=== PATIENT | male | born 1935 | race Asian ===

== ENCOUNTER 2020-09-27 14:13 | Inpatient (IN) | payer MEDICARE, OTHER ==
[~2020-09-27] VITALS: Ht 165.1 cm; Wt 67.6 kg
--- NOTE | 2020-09-27 14:13 | NUR ---
PT BIB [employer] AND [employer] TEAM FOR PSYCH ADMISSION 5157 DANGER TO SELF. PT IS AAOX3, NOT IN RESPIRATORY DISTRESS, V/S STABLE, KEPT RESTED AND COMFORTABLE. WILL CONTINUE TO MONITOR.
--- NOTE | 2020-09-27 14:20 | NUR ---
URINE SPECIMEN COLLECTED AND SENT TO LAB
--- NOTE | 2020-09-27 14:32 | NUR ---
SEEN AND EXAMINED BY .
[2020-09-27 14:43] LABS: BILIRUBIN,URINE Negative (NEGATIVE); COLOR,URINE YELLOW (YELLOW); LEUKOCYTE ESTERASE ,URINE Negative (NEGATIVE); NITRITE, URINE Negative (NEGATIVE); PROTEIN,URINE Trace mg/dl (NEGATIVE); UGLUCOSE Negative (NEGATIVE); UROBILINOGEN,URINE 0.2 EU/dL (0.2)
[2020-09-27 14:50] LABS: BASOPHILS # (AUTO) 0.1 K/uL (0.0-0.2); MONOCYTES # (AUTO) 0.7 K/uL (0.1-1.30); NEUTROPHILS # (AUTO) 6.5 K/uL (1.8-8.9)
[2020-09-27 14:53] LABS: BASOPHILS % (AUTO) 1.1 % (0.0-2.0); EOSINOPHILS % (AUTO) 1.4 % (0.0-6.0); HEMATOCRIT 38 % (39-51); HEMOGLOBIN 13.3 g/dL (13.5-17.5); LYMPHOCYTES # (AUTO) 1.9 K/uL (0.8-4.8); LYMPHOCYTES % (AUTO) 20.3 % (20.0-44.0); MEAN CORPUSCULAR HGB CONC 35 g/dl (31.0-36.0); MEAN CORPUSCULAR VOLUME 97 fL (80-96); MONOCYTES % (AUTO) 7.4 % (2.0-12.0); NEUTROPHILS % (AUTO) 69.8 % (43.0-81.0); PLATELET COUNT (AUTO) 159 K/uL (150-450); RED BLOOD CELL COUNT(AUTO) 3.96 MIL/uL (4.5-6.0); WHITE BLOOD COUNT (AUTO) 9.3 K/uL (4.3-11.0)
[2020-09-27] MEDS ORDERED: MEMA1CAP3 PO (14:53)
[2020-09-27] MEDS ORDERED: ASPI-1420 PO (14:53)
[2020-09-27] MEDS ORDERED: DUTA0.5C37 PO (14:53)
[2020-09-27] MEDS ORDERED: ISOS30TA86 PO (14:53)
[2020-09-27] MEDS ORDERED: TAMS-12 PO (14:53)
[2020-09-27] MEDS ORDERED: PANT40TA49 PO (14:53)
[2020-09-27] MEDS ORDERED: MEGE400O5 PO (14:53)
[2020-09-27] MEDS ORDERED: TICA90TA PO (14:53)
[2020-09-27] MEDS ORDERED: SOLI5TAB2 PO (14:53)
[2020-09-27] MEDS ORDERED: LINA145C PO (14:53)
[2020-09-27] MEDS ORDERED: RANO500T6 PO (14:53)
[2020-09-27] MEDS ORDERED: ASCO-352 PO (14:53)
[2020-09-27] MEDS ORDERED: ATOR40TA PO (14:53)
[2020-09-27] MEDS ORDERED: CYCL30DR EACHEYE (14:53)
[2020-09-27] MEDS ORDERED: LOSA100T31 PO (14:53)
[2020-09-27] MEDS ORDERED: NITR0.4T48 SL (14:53)
[2020-09-27] MEDS ORDERED: DICY20TA11 PO (14:53)
[2020-09-27] MEDS ORDERED: MYRBETRIQ PO (14:53)
[2020-09-27] MEDS ORDERED: METO-357 PO (14:53)
[2020-09-27 14:57] LABS: BACTERIA,URINE Rare /HPF (None Seen); MUCUS,URINE Few /LPF (None Seen); RBC,URINE 0-2 /HPF (0-2); SQUAMOUS EPITHELIAL CELL,UR 0-2 /HPF (None Seen); WBC,URINE 0-2 /HPF (0-3)
[2020-09-27 15:00] LABS: CALCIUM, SERUM 9.1 mg/dL (8.5-10.1); CARBON DIOXIDE 26 mmol/L (21-32); CHLORIDE 106 mmol/L (98-107); CREATININE 1.2 mg/dL (0.6-1.3); GLUCOSE 118 mg/dL (74-106); POTASSIUM 3.6 mmol/L (3.5-5.1); SODIUM SERUM 141 mmol/L (136-145); UREA NITROGEN, BLOOD 26 mg/dL (7-18)
[2020-09-27 15:05] LABS: ALANINE AMINOTRANSFERASE 35 U/L (12-78); ALBUMIN 3.8 g/dL (3.4-5.0); ALKALINE PHOSPHATASE 84 U/L (46-116); ASPARTATE AMINOTRANSFERASE 29 U/L (15-37); BILIRUBIN,DIRECT 0.2 mg/dL (0.0-0.2); BILIRUBIN,TOTAL 0.9 mg/dL (0.2-1.0); TOTAL PROTEIN, SERUM 6.9 g/dL (6.4-8.2)
[2020-09-27 15:08] LABS: ACETAMINOPHEN < 0 ug/ml (10-30); ALCOHOL, BLOOD < 3 mg/dL (0-0)
--- NOTE | 2020-09-27 16:11 | NUR ---
BED 212A
--- NOTE | 2020-09-27 16:43 | NUR ---
REPORT GIVEN TO ANGELINA HANKINS FOR CHRIST[facility]O.
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
[2020-09-27] MEDS ORDERED: LORAZEPAM 0.5 MG TABLET PO PRN (17:30)
[2020-09-27] MEDS ORDERED: TEMAZEPAM 7.5 MG CAPSULE PO PRN (17:30)
[2020-09-27] MEDS ORDERED: ACETAMINOPHEN 325 MG TABLET PO PRN (17:30)
[2020-09-27] MEDS ORDERED: BLOOD SUGAR DIAGNOSTIC 1 EACH STRIP IN ONE (17:30)
[2020-09-27] MEDS ORDERED: NITROGLYCERIN 0.4 MG/TAB BOTTLE SL PRN (17:30)
[2020-09-27] MEDS ORDERED: MAGNESIUM HYDROXIDE 30 ML UDC PO PRN (17:30)
[2020-09-27] MEDS ORDERED: MAG HYDROX/AL HYDROX/SIMETH 30 ML UDC PO PRN (17:30)
[2020-09-27] MEDS ORDERED: Medication Not On Formulary EA (Linaclotide (Linzess) 145 MCG) PO SCH (18:00)
[2020-09-27] MEDS ORDERED: METOPROLOL SUCCINATE 25 MG TAB.SR.24H PO STA (18:15)
--- NOTE | 2020-09-27 18:24 | NUR ---
RN NOTE- HR STILL IN THE 110-120'S. CHLOE PEREZ ORDERED METOPROLOL 25 MG PO STAT X ONE DOSE. COMPLIED
[2020-09-27 20:00] VITALS: BP 132/79
--- NOTE | 2020-09-28 03:39 | NUR ---
Initial Discharge Plan: Pt currently lives at long term apartment located at [address]; ([phone]). Per pt, he would like to return to his home after discharge. SW will work with the pt and the MD regarding appropriate discharge planning. SW will form a safe and proper discharge.
--- NOTE | 2020-09-28 06:38 | NUR ---
GPS RN CLOSING NOTES: PATIENT IS CURRENTLY SLEEPING. PATIENT SLEPT 5HRS THIS SHIFT. NO S/S OF DISTRESS. RESPIRATION EVEN AND UNLABORED WITH EQUAL RISE AND FALL OF THE CHEST ON ROOM AIR. ALL PATIENT CARE NEEDS HAVE BEEN MET ANTICIPATED. BED IN LOWEST POSITION AND LOCKED, WITH SIDE RAILS UP X2 FOR SAFETY. WILL CONTINUE TO MONITOR FOR SAFETY, MOOD AND BEHAVIOR AND ENDORSE TO AM SHIFT.
[2020-09-28 06:51] LABS: ALBUMIN 3.6 g/dL (3.4-5.0); BILIRUBIN,TOTAL 1.1 mg/dL (0.2-1.0); CALCIUM, SERUM 9.2 mg/dL (8.5-10.1); CREATININE 1.1 mg/dL (0.6-1.3); POTASSIUM 3.9 mmol/L (3.5-5.1); TOTAL PROTEIN, SERUM 6.6 g/dL (6.4-8.2)
[2020-09-28 06:52] LABS: CHOLESTEROL 119 mg/dL (<200); HDL CHOLESTEROL 37 mg/dL (40-60); LDL 51 mg/dL (0-99); TRIGLYCERIDES 177 mg/dL (30-150)
[2020-09-28 06:54] LABS: IRON, SERUM 121 ug/dl (50-175); TOTAL IRON BINDING CAPACITY 286 ug/dl (250-450)
[2020-09-28 07:31] LABS: CREATININE 1.1 mg/dL (0.6-1.3)
[2020-09-28] MEDS: PANTOPRAZOLE 40 MG TABLET.DR PO SCH (07:59)
[2020-09-28 08:00] VITALS: BP 132/86
[2020-09-28] MEDS: ATORVASTATIN 40 MG TABLET PO SCH (08:13)
[2020-09-28] MEDS: ASPIRIN EC 81 MG TABLET.DR PO SCH (08:13)
[2020-09-28] MEDS: LOSARTAN POTASSIUM 50 MG TABLET PO SCH (08:13)
[2020-09-28] MEDS: DUTASTERIDE (0.5 MG) 0.5 MG CAPSULE PO SCH (08:13)
[2020-09-28] MEDS: RANOLAZINE 500 MG TAB.ER.12H PO SCH (08:13)
[2020-09-28] MEDS: TAMSULOSIN 0.4 MG CAP.SR.24H PO SCH (08:13)
[2020-09-28] MEDS: ISOSORBIDE MONONITRATE (30MG) 30 MG TAB.SR.24H PO SCH (08:14)
[2020-09-28] MEDS: ASCORBIC ACID 500 MG TABLET PO SCH ×2 (08:14→16:17)
[2020-09-28] MEDS: METOPROLOL SUCCINATE 50 MG TAB.SR.24H PO SCH (08:16)
[2020-09-28] MEDS: TICAGRELOR 90 MG TABLET PO SCH ×2 (08:17→16:20)
[2020-09-28] MEDS ORDERED: Medication Not On Formulary EA (Memantine HCl/Donepezil HCl (Namzaric 28 mg-10 mg Capsul PO SCH (09:00)
[2020-09-28] MEDS ORDERED: Medication Not On Formulary EA (Cyclosporine (Restasis) 1 DROP) EACHEYE SCH (09:00)
--- NOTE | 2020-09-28 09:00 | NUR ---
RN NOTE- PT CONFUSED, ORIENTED TO PERSON PLACE, WITHDRAWN ISOLATIVE THOUGH STARTING TO AMBULATE AROUND UNIT MORE , DENIES SI HI VH
--- NOTE | 2020-09-28 11:41 | NUR ---
Point of contact: FLORESITA called point of contact (no name given) at . Point of contact did not answer the call. SW was unable to leave voicemail because voicemail was full.
--- NOTE | 2020-09-28 13:55 | NUR ---
RN NOTE- PT W REPORTED STUMBLING STEPS, APPEARING TO LOSE BALANCE IN SUN THOUGH DIDN'T FALL. STAFF ESCORTED TO ROOM. VS- BP- 104/60, HR- 78, RR- 18, SATURATION -98% RA. PT ALERT ORIENTED STATES " I DON'T FEEL DIZZY OR ANYTHING' WILL MONITOR PT AND ORDER PT EVAL PRECAUTION.
[2020-09-28 16:03] VITALS: BP 97/60
[2020-09-28] MEDS: QUETIAPINE FUMARATE 25 MG TABLET PO SCH ×2 (16:17→22:24)
[2020-09-28] MEDS: MEMANTINE HCL 5 MG TABLET PO SCH (16:17)
[2020-09-28 20:00] VITALS: BP 125/76
[2020-09-28 20:30] VITALS: BP 125/76
[2020-09-28] MEDS: DONEPEZIL 5 MG TABLET PO SCH (21:19)
--- NOTE | 2020-09-29 06:48 | NUR ---
RN NOTE PATIENT SLEPT WELL AT NIGHT, USED RESTROOM NEEDED. NEEDS 1 PERSON STAND BY ASSISTANCE DUE TO UNSTEADY GAIT AT TIMES. NO OTHER ACUTE CHANGES NOTED THOROUGH OUT THE SHIFT. WILL ENDORSE TO AM RN FOR CONTINUITY OF CARE.
[2020-09-29 08:00] VITALS: BP 113/73
[2020-09-29] MEDS: MEMANTINE HCL 5 MG TABLET PO SCH ×2 (08:46→17:12)
[2020-09-29] MEDS: LOSARTAN POTASSIUM 50 MG TABLET PO SCH (08:47)
[2020-09-29] MEDS: ASPIRIN EC 81 MG TABLET.DR PO SCH (08:47)
[2020-09-29] MEDS: DUTASTERIDE (0.5 MG) 0.5 MG CAPSULE PO SCH (08:47)
[2020-09-29] MEDS: METOPROLOL SUCCINATE 50 MG TAB.SR.24H PO SCH (08:47)
[2020-09-29] MEDS: RANOLAZINE 500 MG TAB.ER.12H PO SCH (08:47)
[2020-09-29] MEDS: QUETIAPINE FUMARATE 25 MG TABLET PO SCH ×3 (08:48→21:57)
[2020-09-29] MEDS: TAMSULOSIN 0.4 MG CAP.SR.24H PO SCH (08:48)
[2020-09-29] MEDS: ASCORBIC ACID 500 MG TABLET PO SCH ×2 (08:48→17:11)
[2020-09-29] MEDS: ATORVASTATIN 40 MG TABLET PO SCH (08:48)
[2020-09-29] MEDS: PANTOPRAZOLE 40 MG TABLET.DR PO SCH (08:48)
[2020-09-29] MEDS: ISOSORBIDE MONONITRATE (30MG) 30 MG TAB.SR.24H PO SCH (08:48)
[2020-09-29] MEDS: TICAGRELOR 90 MG TABLET PO SCH ×2 (09:06→17:12)
[2020-09-29 16:00] VITALS: BP 147/82
--- NOTE | 2020-09-29 19:55 | NUR ---
GPS RN NOTES RECEIVED SITTING ON CHAIR IN THE DINING ROOM,WATCHING TV PROGRAM,A/O 1-2,CALM ABLE TO STATE HIS NAME.DENIES SI,ABLE TO ANSWER SIMPLE QUESTIONS AND ABLE FOLLOW COMMANDS.MED COMPLIANT PER REPORT.WILL CONTINUE TO MONITOR BEHAVIOR AND MANAGE ACCORDINGLY
[2020-09-29 20:00] VITALS: BP 118/73
[2020-09-29 20:08] VITALS: BP 118/73
[2020-09-29] MEDS: DONEPEZIL 5 MG TABLET PO SCH (21:57)
--- NOTE | 2020-09-30 03:09 | NUR ---
GPS RN NOTES C/O HEADACHE,TYLENOL 650MG PO GIVEN PER PATIENT REQUEST,WITH ORDER.
[2020-09-30 08:00] VITALS: BP 115/72
[2020-09-30] MEDS: PANTOPRAZOLE 40 MG TABLET.DR PO SCH (08:27)
[2020-09-30] MEDS: ASCORBIC ACID 500 MG TABLET PO SCH ×2 (08:27→16:13)
[2020-09-30] MEDS: METOPROLOL SUCCINATE 50 MG TAB.SR.24H PO SCH (08:27)
[2020-09-30] MEDS: ASPIRIN EC 81 MG TABLET.DR PO SCH (08:27)
[2020-09-30] MEDS: RANOLAZINE 500 MG TAB.ER.12H PO SCH (08:28)
[2020-09-30] MEDS: MEMANTINE HCL 5 MG TABLET PO SCH ×2 (08:28→16:14)
[2020-09-30] MEDS: TAMSULOSIN 0.4 MG CAP.SR.24H PO SCH (08:28)
[2020-09-30] MEDS: ATORVASTATIN 40 MG TABLET PO SCH (08:28)
[2020-09-30] MEDS: QUETIAPINE FUMARATE 25 MG TABLET PO SCH ×3 (08:28→22:09)
[2020-09-30] MEDS: ISOSORBIDE MONONITRATE (30MG) 30 MG TAB.SR.24H PO SCH (08:29)
[2020-09-30] MEDS: DUTASTERIDE (0.5 MG) 0.5 MG CAPSULE PO SCH (08:29)
[2020-09-30] MEDS: LOSARTAN POTASSIUM 50 MG TABLET PO SCH (08:29)
[2020-09-30] MEDS: TICAGRELOR 90 MG TABLET PO SCH ×2 (08:31→16:15)
--- NOTE | 2020-09-30 10:30 | NUR ---
Contact with Department of Mental Health Healthcare Project Manager: FLORESITA met with Nick Hoang, Department of Mental Health Healthcare Project Manager ([phone]). Nick reports that pt is mandated to be assessed by nephrology social worker due to [employer] report of pt potentially owning a gun. FLORESITA will keep Nick updated on pt discharge plan.
--- NOTE | 2020-09-30 11:58 | NUR ---
[facility] came and interviewed pt. and left a business card and attached in the chart.
[2020-09-30 16:00] VITALS: BP 110/70
[2020-09-30 20:50] VITALS: BP 108/69
[2020-09-30] MEDS: DONEPEZIL 5 MG TABLET PO SCH (22:08)
[2020-10-01] MEDS: PANTOPRAZOLE 40 MG TABLET.DR PO SCH (07:48)
[2020-10-01 08:00] VITALS: BP 137/82
[2020-10-01] MEDS: DUTASTERIDE (0.5 MG) 0.5 MG CAPSULE PO SCH (08:34)
[2020-10-01] MEDS: ATORVASTATIN 40 MG TABLET PO SCH (08:34)
[2020-10-01] MEDS: MEMANTINE HCL 5 MG TABLET PO SCH ×2 (08:34→16:23)
[2020-10-01] MEDS: RANOLAZINE 500 MG TAB.ER.12H PO SCH (08:34)
[2020-10-01] MEDS: ASPIRIN EC 81 MG TABLET.DR PO SCH (08:34)
[2020-10-01] MEDS: ASCORBIC ACID 500 MG TABLET PO SCH ×2 (08:34→16:23)
[2020-10-01] MEDS: ISOSORBIDE MONONITRATE (30MG) 30 MG TAB.SR.24H PO SCH (08:35)
[2020-10-01] MEDS: LOSARTAN POTASSIUM 50 MG TABLET PO SCH (08:35)
[2020-10-01] MEDS: METOPROLOL SUCCINATE 50 MG TAB.SR.24H PO SCH (08:35)
[2020-10-01] MEDS: QUETIAPINE FUMARATE 25 MG TABLET PO SCH ×3 (08:39→21:21)
[2020-10-01] MEDS: TAMSULOSIN 0.4 MG CAP.SR.24H PO SCH (08:39)
[2020-10-01] MEDS: TICAGRELOR 90 MG TABLET PO SCH ×2 (08:40→16:23)
--- NOTE | 2020-10-01 14:13 | NUR ---
Point of contact: FLORESITA called point of contact (no name given) at [phone]. Point of contact did not answer the call. FLORESITA was unable to leave voicemail because the voicemail box has not been setup.
--- NOTE | 2020-10-01 14:17 | NUR ---
Contact with Department of Mental Health SW: FLORESITA called Department of Mental Health FLORESITA Hoang ([phone]) and inquired if he had contact information for pts point of contact. FLORESITA reports that the point of contact information in pts chart is not answering. Department of Mental Health FLORESITA reports that he will call SW back with pts point of contact information.
[2020-10-01 16:00] VITALS: BP 129/69
--- NOTE | 2020-10-01 16:08 | NUR ---
Contact with Department of Mental Health SW: SW received a call from Department of Mental Health FLORESITA Hoang ([phone]). Department of Mental Health FLORESITA reports of the following point of contacts for pt Blanca Goldstein ([phone]), director long term care at pts adult day care Mally Fernandes ([phone]) and pts primary care physician Dr. Ramesh Atwood ([phone]). SW will follow up with the point of contacts given by Department of Mental Health FLORESITA.
--- NOTE | 2020-10-01 20:00 | NUR ---
RN NOTES RECEIVED PATIENT IN BED, ALERT/ORIENTED X2, ROOM AIR, DENIES PAIN AT THIS TIME, NOT IN DISTRESS, CALM, ANSWERS QUESTIONS APPROPRIATELY, AMBULATES , CONTINENT OF BOWEL AND BLADDER.
[2020-10-01 20:29] VITALS: BP 130/78
[2020-10-01] MEDS: DONEPEZIL 5 MG TABLET PO SCH (21:21)
[2020-10-02 08:00] VITALS: BP 117/68
[2020-10-02] MEDS: ASPIRIN EC 81 MG TABLET.DR PO SCH (08:18)
[2020-10-02] MEDS: TAMSULOSIN 0.4 MG CAP.SR.24H PO SCH (08:18)
[2020-10-02] MEDS: PANTOPRAZOLE 40 MG TABLET.DR PO SCH (08:18)
[2020-10-02] MEDS: DUTASTERIDE (0.5 MG) 0.5 MG CAPSULE PO SCH (08:18)
[2020-10-02] MEDS: METOPROLOL SUCCINATE 50 MG TAB.SR.24H PO SCH (08:19)
[2020-10-02] MEDS: RANOLAZINE 500 MG TAB.ER.12H PO SCH (08:19)
[2020-10-02] MEDS: ATORVASTATIN 40 MG TABLET PO SCH (08:19)
[2020-10-02] MEDS: ISOSORBIDE MONONITRATE (30MG) 30 MG TAB.SR.24H PO SCH (08:19)
[2020-10-02] MEDS: LOSARTAN POTASSIUM 50 MG TABLET PO SCH (08:20)
[2020-10-02] MEDS: ASCORBIC ACID 500 MG TABLET PO SCH ×2 (08:20→17:35)
[2020-10-02] MEDS: MEMANTINE HCL 5 MG TABLET PO SCH ×2 (08:20→17:35)
[2020-10-02] MEDS: QUETIAPINE FUMARATE 25 MG TABLET PO SCH ×3 (08:21→21:17)
[2020-10-02] MEDS: TICAGRELOR 90 MG TABLET PO SCH ×2 (08:22→17:38)
[2020-10-02 16:00] VITALS: BP 114/75
[2020-10-02 20:22] VITALS: BP 102/64
[2020-10-02] MEDS: DONEPEZIL 5 MG TABLET PO SCH (21:17)
[2020-10-03 08:00] VITALS: BP 141/78
[2020-10-03] MEDS: DUTASTERIDE (0.5 MG) 0.5 MG CAPSULE PO SCH (08:29)
[2020-10-03] MEDS: MEMANTINE HCL 5 MG TABLET PO SCH ×2 (08:29→16:34)
[2020-10-03] MEDS: TAMSULOSIN 0.4 MG CAP.SR.24H PO SCH (08:29)
[2020-10-03] MEDS: RANOLAZINE 500 MG TAB.ER.12H PO SCH (08:29)
[2020-10-03] MEDS: ATORVASTATIN 40 MG TABLET PO SCH (08:29)
[2020-10-03] MEDS: PANTOPRAZOLE 40 MG TABLET.DR PO SCH (08:29)
[2020-10-03] MEDS: ASCORBIC ACID 500 MG TABLET PO SCH ×2 (08:29→16:34)
[2020-10-03] MEDS: ASPIRIN EC 81 MG TABLET.DR PO SCH (08:29)
[2020-10-03] MEDS: QUETIAPINE FUMARATE 25 MG TABLET PO SCH ×3 (08:29→22:18)
[2020-10-03] MEDS: ISOSORBIDE MONONITRATE (30MG) 30 MG TAB.SR.24H PO SCH (08:30)
[2020-10-03] MEDS: METOPROLOL SUCCINATE 50 MG TAB.SR.24H PO SCH (08:30)
[2020-10-03] MEDS: LOSARTAN POTASSIUM 50 MG TABLET PO SCH (08:31)
[2020-10-03] MEDS: TICAGRELOR 90 MG TABLET PO SCH ×2 (08:31→16:35)
[2020-10-03 16:00] VITALS: BP 127/78
[2020-10-03 20:50] VITALS: BP 94/59
[2020-10-03] MEDS: DONEPEZIL 5 MG TABLET PO SCH (22:16)
[2020-10-04] MEDS: PANTOPRAZOLE 40 MG TABLET.DR PO SCH (07:49)
[2020-10-04 08:00] VITALS: BP 107/57
[2020-10-04] MEDS: RANOLAZINE 500 MG TAB.ER.12H PO SCH (08:51)
[2020-10-04] MEDS: ASPIRIN EC 81 MG TABLET.DR PO SCH (08:52)
[2020-10-04] MEDS: ATORVASTATIN 40 MG TABLET PO SCH (08:52)
[2020-10-04] MEDS: TAMSULOSIN 0.4 MG CAP.SR.24H PO SCH (08:52)
[2020-10-04] MEDS: ASCORBIC ACID 500 MG TABLET PO SCH ×2 (08:53→16:51)
[2020-10-04] MEDS: LOSARTAN POTASSIUM 50 MG TABLET PO SCH (08:53)
[2020-10-04] MEDS: DUTASTERIDE (0.5 MG) 0.5 MG CAPSULE PO SCH (08:53)
[2020-10-04] MEDS: MEMANTINE HCL 5 MG TABLET PO SCH ×2 (08:53→16:51)
[2020-10-04] MEDS: ISOSORBIDE MONONITRATE (30MG) 30 MG TAB.SR.24H PO SCH (08:54)
[2020-10-04] MEDS: QUETIAPINE FUMARATE 25 MG TABLET PO SCH ×3 (08:54→21:31)
[2020-10-04] MEDS: METOPROLOL SUCCINATE 50 MG TAB.SR.24H PO SCH (08:55)
[2020-10-04] MEDS: TICAGRELOR 90 MG TABLET PO SCH ×2 (09:03→16:50)
[2020-10-04 16:00] VITALS: BP 127/76
[2020-10-04 20:00] VITALS: BP 124/75
[2020-10-04] MEDS: MIRTAZAPINE 15 MG TABLET PO SCH (21:31)
[2020-10-04] MEDS: DONEPEZIL 5 MG TABLET PO SCH (21:31)
[2020-10-05 08:00] VITALS: BP 139/83
[2020-10-05] MEDS: LOSARTAN POTASSIUM 50 MG TABLET PO SCH (09:00)
[2020-10-05] MEDS: TICAGRELOR 90 MG TABLET PO SCH ×2 (09:10→17:00)
[2020-10-05] MEDS: ASCORBIC ACID 500 MG TABLET PO SCH ×2 (09:11→16:59)
[2020-10-05] MEDS: ASPIRIN EC 81 MG TABLET.DR PO SCH (09:11)
[2020-10-05] MEDS: PANTOPRAZOLE 40 MG TABLET.DR PO SCH (09:11)
[2020-10-05] MEDS: ATORVASTATIN 40 MG TABLET PO SCH (09:11)
[2020-10-05] MEDS: QUETIAPINE FUMARATE 25 MG TABLET PO SCH ×3 (09:12→22:06)
[2020-10-05] MEDS: METOPROLOL SUCCINATE 50 MG TAB.SR.24H PO SCH (09:12)
[2020-10-05] MEDS: ISOSORBIDE MONONITRATE (30MG) 30 MG TAB.SR.24H PO SCH (09:13)
[2020-10-05] MEDS: TAMSULOSIN 0.4 MG CAP.SR.24H PO SCH (09:13)
[2020-10-05] MEDS: MEMANTINE HCL 5 MG TABLET PO SCH ×2 (09:13→16:59)
[2020-10-05] MEDS: DUTASTERIDE (0.5 MG) 0.5 MG CAPSULE PO SCH (09:13)
[2020-10-05] MEDS: RANOLAZINE 500 MG TAB.ER.12H PO SCH (09:14)
--- NOTE | 2020-10-05 14:50 | NUR ---
Probable Cause Hearing: Pts 5250 hold was upheld for grave disability and danger to himself.
[2020-10-05 16:00] VITALS: BP 142/76
--- NOTE | 2020-10-05 18:04 | NUR ---
RN NOTES PATIENT IN ACTIVITY AREA, WATCHING TV, A/O X1, ON R/A. SAFETY PRECAUTIONS IN PLACE.
[2020-10-05 20:16] VITALS: BP 130/75
[2020-10-05] MEDS: DONEPEZIL 5 MG TABLET PO SCH (22:05)
[2020-10-05] MEDS: MIRTAZAPINE 15 MG TABLET PO SCH (22:06)
[2020-10-06 08:00] VITALS: BP 130/73
[2020-10-06] MEDS: DUTASTERIDE (0.5 MG) 0.5 MG CAPSULE PO SCH (08:09)
[2020-10-06] MEDS: ASPIRIN EC 81 MG TABLET.DR PO SCH (08:09)
[2020-10-06] MEDS: ATORVASTATIN 40 MG TABLET PO SCH (08:09)
[2020-10-06] MEDS: QUETIAPINE FUMARATE 25 MG TABLET PO SCH ×3 (08:09→21:43)
[2020-10-06] MEDS: ASCORBIC ACID 500 MG TABLET PO SCH ×2 (08:09→17:43)
[2020-10-06] MEDS: MEMANTINE HCL 5 MG TABLET PO SCH ×2 (08:09→17:43)
[2020-10-06] MEDS: RANOLAZINE 500 MG TAB.ER.12H PO SCH (08:09)
[2020-10-06] MEDS: TAMSULOSIN 0.4 MG CAP.SR.24H PO SCH (08:10)
[2020-10-06] MEDS: PANTOPRAZOLE 40 MG TABLET.DR PO SCH (08:10)
[2020-10-06] MEDS: ISOSORBIDE MONONITRATE (30MG) 30 MG TAB.SR.24H PO SCH (08:11)
[2020-10-06] MEDS: METOPROLOL SUCCINATE 50 MG TAB.SR.24H PO SCH (08:11)
[2020-10-06] MEDS: LOSARTAN POTASSIUM 50 MG TABLET PO SCH (08:12)
[2020-10-06] MEDS: TICAGRELOR 90 MG TABLET PO SCH ×2 (08:18→17:43)
--- NOTE | 2020-10-06 09:33 | NUR ---
SNF Referral: FLORESITA faxed a referral to [facility] with attn to Admissions to the fax number: [phone].
--- NOTE | 2020-10-06 12:17 | NUR ---
Point of contact: SW called pts point of contact Blanca Goldstein ([phone]). Point of contact did not answer. SW was unable to leave voicemail because voice mailbox is not set up.
[2020-10-06 16:06] VITALS: BP 126/73
[2020-10-06 19:57] VITALS: BP 138/78
[2020-10-06] MEDS: DONEPEZIL 5 MG TABLET PO SCH (21:43)
[2020-10-06] MEDS: MIRTAZAPINE 15 MG TABLET PO SCH (21:43)
[2020-10-07 08:00] VITALS: BP 103/59
[2020-10-07] MEDS: MEMANTINE HCL 5 MG TABLET PO SCH ×2 (08:27→16:17)
[2020-10-07] MEDS: PANTOPRAZOLE 40 MG TABLET.DR PO SCH (08:27)
[2020-10-07] MEDS: ASPIRIN EC 81 MG TABLET.DR PO SCH (08:27)
[2020-10-07] MEDS: RANOLAZINE 500 MG TAB.ER.12H PO SCH (08:28)
[2020-10-07] MEDS: DUTASTERIDE (0.5 MG) 0.5 MG CAPSULE PO SCH (08:28)
[2020-10-07] MEDS: TAMSULOSIN 0.4 MG CAP.SR.24H PO SCH (08:28)
[2020-10-07] MEDS: ASCORBIC ACID 500 MG TABLET PO SCH ×2 (08:28→16:18)
[2020-10-07] MEDS: ATORVASTATIN 40 MG TABLET PO SCH (08:28)
[2020-10-07] MEDS: QUETIAPINE FUMARATE 25 MG TABLET PO SCH ×3 (08:28→21:37)
[2020-10-07] MEDS: ISOSORBIDE MONONITRATE (30MG) 30 MG TAB.SR.24H PO SCH (08:29)
[2020-10-07] MEDS: LOSARTAN POTASSIUM 50 MG TABLET PO SCH (08:29)
[2020-10-07] MEDS: METOPROLOL SUCCINATE 50 MG TAB.SR.24H PO SCH (08:30)
[2020-10-07] MEDS: TICAGRELOR 90 MG TABLET PO SCH ×2 (08:32→16:19)
--- NOTE | 2020-10-07 09:35 | NUR ---
SNF Contact: FLORESITA called [facility] and left a voicemail for the admissions department. FLORESITA will follow up once again.
[2020-10-07 16:00] VITALS: BP 128/67
[2020-10-07 20:07] VITALS: BP 128/66
[2020-10-07] MEDS: DONEPEZIL 5 MG TABLET PO SCH (21:37)
[2020-10-07] MEDS: MIRTAZAPINE 15 MG TABLET PO SCH (21:37)
--- NOTE | 2020-10-08 06:30 | NUR ---
RN NOTES: COVID -19 ANTIGEN TEST COLLECT, SEND TO THE LAB.
[2020-10-08] MEDS: TICAGRELOR 90 MG TABLET PO SCH (07:54)
[2020-10-08 08:00] VITALS: BP 129/66
[2020-10-08] MEDS: PANTOPRAZOLE 40 MG TABLET.DR PO SCH (08:01)
[2020-10-08] MEDS: ASCORBIC ACID 500 MG TABLET PO SCH (08:01)
[2020-10-08] MEDS: DUTASTERIDE (0.5 MG) 0.5 MG CAPSULE PO SCH (08:01)
[2020-10-08] MEDS: TAMSULOSIN 0.4 MG CAP.SR.24H PO SCH (08:01)
[2020-10-08] MEDS: MEMANTINE HCL 5 MG TABLET PO SCH (08:01)
[2020-10-08] MEDS: ASPIRIN EC 81 MG TABLET.DR PO SCH (08:01)
[2020-10-08] MEDS: RANOLAZINE 500 MG TAB.ER.12H PO SCH (08:01)
[2020-10-08] MEDS: ATORVASTATIN 40 MG TABLET PO SCH (08:01)
[2020-10-08] MEDS: QUETIAPINE FUMARATE 25 MG TABLET PO SCH (08:01)
[2020-10-08] MEDS: ISOSORBIDE MONONITRATE (30MG) 30 MG TAB.SR.24H PO SCH (08:02)
[2020-10-08] MEDS: METOPROLOL SUCCINATE 50 MG TAB.SR.24H PO SCH (08:02)
[2020-10-08 08:04] VITALS: BP 129/66
[2020-10-08] MEDS: LOSARTAN POTASSIUM 50 MG TABLET PO SCH (08:04)
--- NOTE | 2020-10-08 08:43 | NUR ---
Contact with Department of Mental Health SW: FLORESITA called the Department of Mental Health FLORESITA Hoang ([phone]) to inform him of pts discharge to [facility] on Thursday October 08, 2020. Department of Mental Health FLORESITA did not answer and FLORESITA left a voicemail with discharge information.
--- NOTE | 2020-10-08 08:50 | NUR ---
Dr. Viveros covering for Dr. Sneed gave an order to D/C hold and D/C to [facility] and to follow up with psych and medical doctors. Psychiatrist ordered to continue same meds including prn. dr. Banks made aware of the discharge and reconciled meds.
--- NOTE | 2020-10-08 10:47 | NUR ---
Discharge Note: Pt will be discharged to [facility] located at [address] [place] [address] . Rm 314B. Pt will be discharged via [facility] at 2pm. Upon discharge, the pt appears to be in a euthymic mood and presents with a distressed affect. Pt appears to be alert and oriented x2. Pt appears to be ambulatory with an unsteady gait. Pt denies both suicidal and homicidal ideation as well as auditory and visual hallucinations. Pt will be under the care of psychiatrist, Dr. Claude Olivas, located at [address] [place] [address] [address] [address]; and application coordinator, Dr. Charles Torrez, located at [address] [place] [address] [address], [place] [address]; ([phone]). The choice of vendor form and multidisciplinary exit care form were done, printed, signed, and given to the patient.
[2020-10-08] MEDS ORDERED: OLANZAPINE 10 MG VIAL IM ONE (11:30)
--- NOTE | 2020-10-08 14:30 | NUR ---
GPS/RN PT DISCHARGED TO [facility] located at [facility] [place] [address] . REPORT GIVEN TO ADMITTING NURSE. PROPERTY RETURNED. NO SI OR HI AT THE TIME OF DISCHARGE. PT REFUSED TO SIGN THE D/C PAPERWORK. LEFT VIA AMBULANCE
== END 2020-10-08 14:30 | DRG 885 ==
LOC: ER 14:24 → GPS 16:28
PROVIDERS: ADMIT Psychiatry & Neurology Psychiatry; ATTEND Nurse Practitioner Family
DX: F29 Unspecified psychosis not due to a substance or known physiological condition (principal); R45.851 Suicidal ideations; F02.81 Dementia in other diseases classified elsewhere, unspecified severity, with behavioral disturbance; E78.5 Hyperlipidemia, unspecified; F32.9 Major depressive disorder, single episode, unspecified; I25.10 Atherosclerotic heart disease of native coronary artery without angina pectoris; I10 Essential (primary) hypertension; E86.0 Dehydration; D53.1 Other megaloblastic anemias, not elsewhere classified; N40.0 Benign prostatic hyperplasia without lower urinary tract symptoms; K21.9 Gastro-esophageal reflux disease without esophagitis; Z20.822 Contact with and (suspected) exposure to COVID-19; G30.9 Alzheimer's disease, unspecified
CPT/HCPCS: 36415; 80048-TC; 80053-TC; 80061-TC; 80076-TC; 81001; 82565-TC; 82962-TC; 83540-TC; 85025-TC; 87081-TC; 97116-TC; 97530-TC; C9803; G0480